=== PATIENT | male | born 1955 | race Two or more races ===

== ENCOUNTER 2021-11-30 13:10 | Inpatient (IN) | payer OTHER ==
[2021-11-30 13:35] VITALS: BMI 26.6
[2021-11-30 15:37] LABS: BASO % 0.4 % (0-2.0); HEMATOCRIT 51.4 % (35.4-49); HEMOGLOBIN 16.8 GM/dL (11.7-16.9); LYMPH % 17.5 % (8-40); MCH 25.9 pg (25.7-33.7); MCHC 32.6 g/dl (32.0-35.9); MEAN CELL VOLUME 79.5 fl (80-96); MONO % 16.4 % (3.8-10.2); NEUT % 64.7 % (42.8-82.8); PLATELET COUNT 173 10^3/uL (134-434); RBC 6.46 M/mm3 (4.00-5.60); WHITE BLOOD COUNT 7.9 K/mm3 (4.0-10.0)
[2021-11-30 15:47] LABS: ALBUMIN 3.9 g/dl (3.4-5.0); BLOOD UREA NITROGEN 9.9 mg/dL (7-18)
[2021-11-30 15:50] LABS: CREATININE 0.8 mg/dL (0.55-1.3)
[2021-11-30 15:55] LABS: N-TERMINAL BNP 161.8 pg/ml (5-125)
[2021-11-30 15:56] LABS: BILIRUBIN,TOTAL 0.9 mg/dL (0.2-1)
[2021-11-30 16:36] LABS: URINE APPEARANCE CLEAR; URINE BILIRUBIN NEGATIVE (NEGATIVE); URINE COLOR YELLOW; URINE GLUCOSE (UA) NEGATIVE (NEGATIVE); URINE KETONE TRACE (NEGATIVE); URINE LEUK ESTERASE NEGATIVE (NEGATIVE); URINE NITRITE NEGATIVE (NEGATIVE); URINE PROTEIN NEGATIVE (NEGATIVE)
[2021-11-30] MEDS ORDERED: BEBTELOVIMAB (EUA) 175 MG/2 ML VIAL IVPUSH ONE (22:31)
[2021-11-30] MEDS: MEMANTINE HCL 10 MG TABLET (FP) PO SCH (23:57)
[2021-12-01] MEDS ORDERED: ACETAMINOPHEN 1000 MG/100 ML BAG IVPB PRN (06:44)
[2021-12-01] MEDS ORDERED: ACETAMINOPHEN INJECTION 100 ML IVPB ONE ×2 (06:50→18:17)
[2021-12-01] MEDS: INSULIN SLIDING SCALE (NOVOLOG) 1 VIAL SQ SCH ×3 (07:27→17:06)
[2021-12-01 08:17] LABS: BASO % 0.3 % (0-2.0); EOS % 0.8 % (0-4.5); HEMATOCRIT 43.8 % (35.4-49); HEMOGLOBIN 14.6 GM/dL (11.7-16.9); LYMPH % 13.8 % (8-40); MCH 25.9 pg (25.7-33.7); MCHC 33.2 g/dl (32.0-35.9); MEAN PLT VOLUME 9.9 fl (7.5-11.1); MONO % 16.4 % (3.8-10.2); NEUT % 68.7 % (42.8-82.8); PLATELET COUNT 158 10^3/uL (134-434); RBC 5.62 M/mm3 (4.00-5.60); RDW 15.3 % (11.9-15.9); WHITE BLOOD COUNT 6.1 K/mm3 (4.0-10.0)
[2021-12-01 08:44] LABS: ALBUMIN 3.3 g/dl (3.4-5.0); BLOOD UREA NITROGEN 7.8 mg/dL (7-18); CALCIUM 8.5 mg/dL (8.5-10.1); MAGNESIUM 2.1 mg/dL (1.8-2.4)
[2021-12-01 08:47] LABS: CREATININE 0.7 mg/dL (0.55-1.3); PHOSPHOROUS 3.3 mg/dL (2.5-4.9)
[2021-12-01 08:49] LABS: TOT PROT 6.8 g/dl (6.4-8.2)
[2021-12-01] MEDS ORDERED: DONEPEZIL HCL 5 MG TABLET (FP) ONE (09:09)
[2021-12-01] MEDS ORDERED: ATENOLOL 25 MG TABLET (FP) ONE (09:09)
[2021-12-01] MEDS ORDERED: LISINOPRIL 5 MG TABLET ONE (09:09)
[2021-12-01] MEDS ORDERED: ENOXAPARIN NA (PORCINE) 40 MG/0.4 ML DISP.SYRIN SQ ONE (09:10)
[2021-12-01] MEDS: LISINOPRIL 5 MG TABLET PO SCH (09:29)
[2021-12-01] MEDS: ATENOLOL 25 MG TABLET (FP) PO SCH (09:29)
[2021-12-01] MEDS: ENOXAPARIN NA (PORCINE) 40 MG/0.4 ML DISP.SYRIN SQ SCH (09:29)
[2021-12-01] MEDS: MEMANTINE HCL 10 MG TABLET (FP) PO SCH (09:29)
[2021-12-01] MEDS: DONEPEZIL HCL 10 MG TABLET (FP) PO SCH (09:29)
[2021-12-01] MEDS ORDERED: ATORVASTATIN CA 10 MG TABLET (FP) ONE (23:32)
[2021-12-02] MEDS: MEMANTINE HCL 10 MG TABLET (FP) PO SCH ×3 (01:00→23:46)
[2021-12-02] MEDS: ATORVASTATIN CA 10 MG TABLET (FP) PO SCH ×2 (01:00→23:46)
[2021-12-02] MEDS: INSULIN SLIDING SCALE (NOVOLOG) 1 VIAL SQ SCH ×5 (02:10→23:46)
[2021-12-02] MEDS: ATENOLOL 25 MG TABLET (FP) PO SCH (10:16)
[2021-12-02] MEDS: LISINOPRIL 5 MG TABLET PO SCH (10:16)
[2021-12-02] MEDS: ENOXAPARIN NA (PORCINE) 40 MG/0.4 ML DISP.SYRIN SQ SCH (10:16)
[2021-12-02] MEDS: DONEPEZIL HCL 10 MG TABLET (FP) PO SCH (10:16)
[2021-12-02 10:53] LABS: BASO % 0.4 % (0-2.0); EOS % 0.4 % (0-4.5); HEMATOCRIT 48.2 % (35.4-49); HEMOGLOBIN 15.8 GM/dL (11.7-16.9); MCH 25.8 pg (25.7-33.7); MCHC 32.8 g/dl (32.0-35.9); MEAN CELL VOLUME 78.7 fl (80-96); MEAN PLT VOLUME 9.7 fl (7.5-11.1); MONO % 13.5 % (3.8-10.2); NEUT % 68.7 % (42.8-82.8); PLATELET COUNT 163 10^3/uL (134-434); RBC 6.12 M/mm3 (4.00-5.60); RDW 15.7 % (11.9-15.9); WHITE BLOOD COUNT 5.4 K/mm3 (4.0-10.0)
[2021-12-02 11:13] LABS: CALCIUM 8.5 mg/dL (8.5-10.1)
[2021-12-02 11:14] LABS: ALBUMIN 3.4 g/dl (3.4-5.0); BLOOD UREA NITROGEN 7.9 mg/dL (7-18)
[2021-12-02 11:17] LABS: CREATININE 0.7 mg/dL (0.55-1.3)
[2021-12-02 11:18] LABS: TOT PROT 7.1 g/dl (6.4-8.2)
[2021-12-02 11:19] LABS: BILIRUBIN,TOTAL 0.7 mg/dL (0.2-1)
[2021-12-02] MEDS ORDERED: ACETAMINOPHEN 325 MG TABLET (FP) PO PRN (12:07)
[2021-12-03] MEDS: INSULIN SLIDING SCALE (NOVOLOG) 1 VIAL SQ SCH ×4 (06:12→21:50)
[2021-12-03] MEDS: LISINOPRIL 5 MG TABLET PO SCH (10:59)
[2021-12-03] MEDS: ATENOLOL 25 MG TABLET (FP) PO SCH (10:59)
[2021-12-03] MEDS: DONEPEZIL HCL 10 MG TABLET (FP) PO SCH (10:59)
[2021-12-03] MEDS: MEMANTINE HCL 10 MG TABLET (FP) PO SCH ×2 (10:59→21:50)
[2021-12-03] MEDS: ENOXAPARIN NA (PORCINE) 40 MG/0.4 ML DISP.SYRIN SQ SCH (10:59)
[2021-12-03 11:16] LABS: BASO % 0.4 % (0-2.0); EOS % 1.7 % (0-4.5); HEMOGLOBIN 15.7 GM/dL (11.7-16.9); LYMPH % 33.4 % (8-40); MCH 25.7 pg (25.7-33.7); MCHC 32.7 g/dl (32.0-35.9); MEAN CELL VOLUME 78.6 fl (80-96); MEAN PLT VOLUME 9.2 fl (7.5-11.1); MONO % 14.7 % (3.8-10.2); NEUT % 49.8 % (42.8-82.8); PLATELET COUNT 153 10^3/uL (134-434); RBC 6.11 M/mm3 (4.00-5.60); RDW 15.5 % (11.9-15.9); WHITE BLOOD COUNT 4.3 K/mm3 (4.0-10.0)
[2021-12-03 11:37] LABS: CALCIUM 8.4 mg/dL (8.5-10.1)
[2021-12-03 11:38] LABS: ALBUMIN 3.1 g/dl (3.4-5.0); MAGNESIUM 2.4 mg/dL (1.8-2.4)
[2021-12-03 11:41] LABS: BLOOD UREA NITROGEN 14.7 mg/dL (7-18); CREATININE 0.7 mg/dL (0.55-1.3)
[2021-12-03 11:42] LABS: BILIRUBIN,TOTAL 0.7 mg/dL (0.2-1); TOT PROT 6.8 g/dl (6.4-8.2)
[2021-12-03 11:44] LABS: PHOSPHOROUS 3.8 mg/dL (2.5-4.9)
[2021-12-03] MEDS ORDERED: DEXTROSE 5%-WATER - 50 ML IVPB ONE (12:08)
[2021-12-03] MEDS ORDERED: cefTRIAXone SODIUM 1 GM VIAL ONE (12:08)
[2021-12-03] MEDS: CEFTRIAXONE 1 GM in DEXTROSE 5%-WATER - 50 ML IVPB SCH (12:12)
[2021-12-03] MEDS: AZITHROMYCIN IVPB 500 MG/250 ML BAG IVPB SCH (12:12)
[2021-12-03 17:52] LABS: PH,URINE 5.5 (5.0-8.0); URINE APPEARANCE CLEAR; URINE BILIRUBIN NEGATIVE (NEGATIVE); URINE COLOR YELLOW; URINE GLUCOSE (UA) 1+ (NEGATIVE); URINE KETONE TRACE (NEGATIVE); URINE LEUK ESTERASE NEGATIVE (NEGATIVE); URINE NITRITE NEGATIVE (NEGATIVE); URINE PROTEIN TRACE (NEGATIVE)
[2021-12-03] MEDS: ATORVASTATIN CA 10 MG TABLET (FP) PO SCH (21:50)
[2021-12-04] MEDS: INSULIN SLIDING SCALE (NOVOLOG) 1 VIAL SQ SCH ×4 (06:07→21:08)
[2021-12-04] MEDS ORDERED: DEXTROSE 5%-WATER - 50 ML IVPB ONE (08:50)
[2021-12-04] MEDS ORDERED: cefTRIAXone SODIUM 1 GM VIAL ONE (08:50)
[2021-12-04 10:10] LABS: BASO % 0.2 % (0-2.0); EOS % 1.1 % (0-4.5); HEMATOCRIT 46.3 % (35.4-49); HEMOGLOBIN 15.3 GM/dL (11.7-16.9); LYMPH % 30.3 % (8-40); MCH 25.9 pg (25.7-33.7); MCHC 32.9 g/dl (32.0-35.9); MEAN CELL VOLUME 78.7 fl (80-96); MEAN PLT VOLUME 9.5 fl (7.5-11.1); MONO % 12.4 % (3.8-10.2); PLATELET COUNT 153 10^3/uL (134-434); RBC 5.89 M/mm3 (4.00-5.60); RDW 15.3 % (11.9-15.9); WHITE BLOOD COUNT 4.2 K/mm3 (4.0-10.0)
[2021-12-04 10:14] LABS: ALBUMIN 2.9 g/dl (3.4-5.0); BLOOD UREA NITROGEN 13.5 mg/dL (7-18); CALCIUM 8.3 mg/dL (8.5-10.1); MAGNESIUM 2.3 mg/dL (1.8-2.4)
[2021-12-04 10:17] LABS: CREATININE 0.7 mg/dL (0.55-1.3); PHOSPHOROUS 3.3 mg/dL (2.5-4.9)
[2021-12-04 10:19] LABS: TOT PROT 6.6 g/dl (6.4-8.2)
[2021-12-04] MEDS: MEMANTINE HCL 10 MG TABLET (FP) PO SCH ×2 (10:39→21:02)
[2021-12-04] MEDS: ENOXAPARIN NA (PORCINE) 40 MG/0.4 ML DISP.SYRIN SQ SCH (10:39)
[2021-12-04] MEDS: DONEPEZIL HCL 10 MG TABLET (FP) PO SCH (10:39)
[2021-12-04] MEDS: LISINOPRIL 5 MG TABLET PO SCH (10:39)
[2021-12-04] MEDS: ATENOLOL 25 MG TABLET (FP) PO SCH (10:39)
[2021-12-04] MEDS: CEFTRIAXONE 1 GM in DEXTROSE 5%-WATER - 50 ML IVPB SCH (10:40)
[2021-12-04] MEDS: AZITHROMYCIN IVPB 500 MG/250 ML BAG IVPB SCH (10:43)
[2021-12-04] MEDS: ATORVASTATIN CA 10 MG TABLET (FP) PO SCH (21:02)
[2021-12-05] MEDS: INSULIN SLIDING SCALE (NOVOLOG) 1 VIAL SQ SCH ×4 (06:04→21:49)
[2021-12-05] MEDS ORDERED: DEXTROSE 5%-WATER - 50 ML IVPB ONE (10:53)
[2021-12-05] MEDS ORDERED: cefTRIAXone SODIUM 1 GM VIAL ONE (10:53)
[2021-12-05] MEDS: ATENOLOL 25 MG TABLET (FP) PO SCH (10:58)
[2021-12-05] MEDS: LISINOPRIL 5 MG TABLET PO SCH (10:58)
[2021-12-05] MEDS: AZITHROMYCIN IVPB 500 MG/250 ML BAG IVPB SCH (10:58)
[2021-12-05] MEDS: DONEPEZIL HCL 10 MG TABLET (FP) PO SCH (10:58)
[2021-12-05] MEDS: CEFTRIAXONE 1 GM in DEXTROSE 5%-WATER - 50 ML IVPB SCH (10:58)
[2021-12-05] MEDS: ENOXAPARIN NA (PORCINE) 40 MG/0.4 ML DISP.SYRIN SQ SCH (10:58)
[2021-12-05] MEDS: MEMANTINE HCL 10 MG TABLET (FP) PO SCH ×2 (10:58→21:50)
[2021-12-05] MEDS: SENNOSIDES 8.6MG TABLET (FP) PO SCH (21:37)
[2021-12-05] MEDS: ATORVASTATIN CA 10 MG TABLET (FP) PO SCH (21:51)
[2021-12-06] MEDS: INSULIN SLIDING SCALE (NOVOLOG) 1 VIAL SQ SCH ×4 (06:10→22:44)
[2021-12-06 10:27] LABS: BASO % 0.2 % (0-2.0); EOS % 2.7 % (0-4.5); HEMATOCRIT 48.2 % (35.4-49); HEMOGLOBIN 16.4 GM/dL (11.7-16.9); LYMPH % 27.3 % (8-40); MCH 26.4 pg (25.7-33.7); MEAN CELL VOLUME 77.6 fl (80-96); MEAN PLT VOLUME 9.4 fl (7.5-11.1); MONO % 8.4 % (3.8-10.2); NEUT % 61.4 % (42.8-82.8); PLATELET COUNT 155 10^3/uL (134-434); RBC 6.21 M/mm3 (4.00-5.60); RDW 14.9 % (11.9-15.9); WHITE BLOOD COUNT 5.1 K/mm3 (4.0-10.0)
[2021-12-06 11:06] LABS: BLOOD UREA NITROGEN 11.5 mg/dL (7-18)
[2021-12-06 11:07] LABS: CALCIUM 8.7 mg/dL (8.5-10.1)
[2021-12-06 11:09] LABS: ALBUMIN 3.2 g/dl (3.4-5.0); CREATININE 0.6 mg/dL (0.55-1.3)
[2021-12-06 11:11] LABS: BILIRUBIN,TOTAL 1.1 mg/dL (0.2-1); TOT PROT 7.3 g/dl (6.4-8.2)
[2021-12-06] MEDS ORDERED: cefTRIAXone SODIUM 1 GM VIAL ONE (11:27)
[2021-12-06] MEDS ORDERED: DEXTROSE 5%-WATER - 50 ML IVPB ONE (11:27)
[2021-12-06] MEDS: MEMANTINE HCL 10 MG TABLET (FP) PO SCH ×2 (11:30→22:34)
[2021-12-06] MEDS: ATENOLOL 25 MG TABLET (FP) PO SCH (11:31)
[2021-12-06] MEDS: LISINOPRIL 5 MG TABLET PO SCH (11:31)
[2021-12-06] MEDS: CEFTRIAXONE 1 GM in DEXTROSE 5%-WATER - 50 ML IVPB SCH (11:31)
[2021-12-06] MEDS: AZITHROMYCIN IVPB 500 MG/250 ML BAG IVPB SCH (11:31)
[2021-12-06] MEDS: ENOXAPARIN NA (PORCINE) 40 MG/0.4 ML DISP.SYRIN SQ SCH (11:31)
[2021-12-06] MEDS: DONEPEZIL HCL 10 MG TABLET (FP) PO SCH (11:31)
[2021-12-06] MEDS: POLYETHYLENE GLYCOL (HEALTHYLAX) 3350 17 GM PACKET PO SCH (11:43)
[2021-12-06] MEDS: ATORVASTATIN CA 10 MG TABLET (FP) PO SCH (22:34)
[2021-12-06] MEDS: SENNOSIDES 8.6MG TABLET (FP) PO SCH (22:34)
[2021-12-07] MEDS: INSULIN SLIDING SCALE (NOVOLOG) 1 VIAL SQ SCH ×2 (06:01→13:11)
[2021-12-07 07:45] VITALS: TEMP 98.8
[2021-12-07] MEDS ORDERED: cefTRIAXone SODIUM 1 GM VIAL ONE (10:10)
[2021-12-07] MEDS ORDERED: DEXTROSE 5%-WATER - 50 ML IVPB ONE (10:10)
[2021-12-07 10:24] LABS: BASO % 0.4 % (0-2.0); EOS % 2.4 % (0-4.5); HEMATOCRIT 46.5 % (35.4-49); HEMOGLOBIN 15.5 GM/dL (11.7-16.9); MCH 25.9 pg (25.7-33.7); MCHC 33.4 g/dl (32.0-35.9); MEAN CELL VOLUME 77.5 fl (80-96); MEAN PLT VOLUME 8.9 fl (7.5-11.1); MONO % 8.5 % (3.8-10.2); NEUT % 63.7 % (42.8-82.8); PLATELET COUNT 188 10^3/uL (134-434); WHITE BLOOD COUNT 6.6 K/mm3 (4.0-10.0)
[2021-12-07] MEDS: CEFTRIAXONE 1 GM in DEXTROSE 5%-WATER - 50 ML IVPB SCH (10:25)
[2021-12-07] MEDS: DONEPEZIL HCL 10 MG TABLET (FP) PO SCH (10:25)
[2021-12-07] MEDS: ATENOLOL 25 MG TABLET (FP) PO SCH (10:25)
[2021-12-07] MEDS: MEMANTINE HCL 10 MG TABLET (FP) PO SCH (10:25)
[2021-12-07] MEDS: POLYETHYLENE GLYCOL (HEALTHYLAX) 3350 17 GM PACKET PO SCH (10:26)
[2021-12-07] MEDS: ENOXAPARIN NA (PORCINE) 40 MG/0.4 ML DISP.SYRIN SQ SCH (10:26)
[2021-12-07] MEDS: LISINOPRIL 5 MG TABLET PO SCH (10:26)
[2021-12-07 10:38] LABS: CHLORIDE 104 mmol/L (98-107); SODIUM 138 mmol/L (136-145)
[2021-12-07 10:49] LABS: CALCIUM 8.7 mg/dL (8.5-10.1)
[2021-12-07 10:50] LABS: ANION GAP 8 MMOL/L (8-16); BLOOD UREA NITROGEN 15.1 mg/dL (7-18); CO2 26 mmol/L (21-32); MAGNESIUM 2.3 mg/dL (1.8-2.4)
[2021-12-07 10:52] LABS: BILIRUBIN,TOTAL 1.4 mg/dL (0.2-1); TOT PROT 6.9 g/dl (6.4-8.2)
[2021-12-07 10:53] LABS: ALK PHOS 75 U/L (45-117); PHOSPHOROUS 3.3 mg/dL (2.5-4.9); SGOT/AST 25 U/L (15-37); SGPT/ALT 44 U/L (13-61)
[2021-12-07 10:55] LABS: ALBUMIN 3.1 g/dl (3.4-5.0); GLUCOSE,RANDOM 126 mg/dL (74-106)
[2021-12-07 10:58] LABS: CREATININE 0.6 mg/dL (0.55-1.3)
[2021-12-07 11:23] VITALS: BP 110/76; PULSE 71
[2021-12-07] MEDS: AZITHROMYCIN IVPB 500 MG/250 ML BAG IVPB SCH (13:18)
== END 2021-12-07 16:28 | disposition home or self-care (01) | DRG 177 ==
LOC: JER 13:10 → JERBED 19:01 → J5S 12-02 08:21
PROVIDERS: ADMIT Hospitalist
PROC: XW033H6 Introduction of Other New Technology Monoclonal Antibody into Peripheral Vein, Percutaneous Approach, New Technology Group 6 (ICD-10-PCS; principal; 2021-11-30)
DX: U07.1 COVID-19 (principal); J12.82 Pneumonia due to coronavirus disease 2019; J18.9 Pneumonia, unspecified organism; E78.5 Hyperlipidemia, unspecified; I10 Essential (primary) hypertension; G30.9 Alzheimer's disease, unspecified; F02.80 Dementia in other diseases classified elsewhere, unspecified severity, without behavioral disturbance, psychotic disturbance, mood disturbance, and anxiety; E11.9 Type 2 diabetes mellitus without complications; R50.9 Fever, unspecified; R09.02 Hypoxemia; R41.82 Altered mental status, unspecified
CPT/HCPCS: 0241U-QW; 36415; 70450-TC; 71045-TC-FY; 71046-TC-FY; 80053; 81003; 82962; 83735; 83880; 84100; 84443; 84484; 85025; 86140; 87040; 87086; 87899; 93005; 93010; 97116-GP; 97162-GP; 99285-25